=== PATIENT | male | born 1950 | race Caucasian/White ===

== ENCOUNTER 2019-02-24 12:24 | Emergency (ER) | payer OTHER, MEDICARE ==
[2019-02-24] MEDS ORDERED: NORMAL SALINE 1000 ML 1,000 ML IV ONE (12:39)
[2019-02-24] MEDS ORDERED: MORPHINE SULFATE 10 MG/ML INJ IV ONE (12:39)
[2019-02-24] MEDS ORDERED: ONDANSETRON HCL INJ/PF 4 MG/2 ML SDV IV ONE (12:39)
--- NOTE | 2019-02-24 12:42 | ER Document Report ---
ED Medical Screen (RME) - General Chief Complaint: Flank Pain Stated Complaint: FLANK PAIN Time Seen by Provider: 02/24/19 12:33 TRAVEL OUTSIDE OF THE U.S. IN LAST 30 DAYS: No - HPI Notes: 02/24/19 12:40 68-year-old male to the emergency department with complaints of acute onset of right flank pain and nausea that began this morning just prior to arrival. He states that he has a history of kidney stones and this feels similar. He denies any vomiting, fevers, chills, chest pain, shortness of breath. He states that he has not seen blood in his urine yet this morning. He states that he has not urinated since the pain started though. He states that several years ago he was hospitalized for almost a year because it so many kidney stones in both of his kidneys. He he is followed at the [facility]. I performed a medical screening exam. Patient has right-sided CVA tenderness and tenderness over palpation of the right lateral abdomen. He appears to be in pain and cannot get comfortable. I have ordered initial labs and a CT scan as well as medicines. We will have him further evaluated and managed by [facility] provider. - Related Data Allergies/Adverse Reactions: codeine Allergy (Verified 02/24/19 12:25) Past Medical History - Social History Frequency of alcohol use: Rare Drug Abuse: None Renal/ Medical History: Denies: Hx Peritoneal Dialysis Physical Exam - Vital signs Vitals: Temp Pulse Resp BP Pulse Ox 98.1 F 78 20 193/110 H 95 02/24/19 12:30 02/24/19 12:30 02/24/19 12:30 02/24/19 12:30 02/24/19 12:30 Course - Vital Signs Vital signs: Temp Pulse Resp BP Pulse Ox 98.1 F 78 20 193/110 H 95 02/24/19 12:30 02/24/19 12:30 02/24/19 12:30 02/24/19 12:30 02/24/19 12:30
[2019-02-24 13:06] LABS: ABSOLUTE BASOPHILS # (AUTO) 0.1 10^3/uL (0.0-0.2); ABSOLUTE EOSINOPHILS # (AUTO) 0.1 10^3/uL (0.0-0.6); ABSOLUTE LYMPHOCYTES (AUTO) 1.3 10^3/uL (0.5-4.7); ABSOLUTE MONOCYTES (AUTO) 0.7 10^3/uL (0.1-1.4); ABSOLUTE NEUT (AUTO) 5.8 10^3/uL (1.7-8.2); BASOPHILS % (AUTO) 0.6 % (0-2); EOSINOPHILS % (AUTO) 1.1 % (0-6); HEMATOCRIT 48.7 % (37.9-51.0); HEMOGLOBIN 16.5 g/dL (13.5-17.0); LYMPHOCYTES % (AUTO) 16.5 % (13-45); MEAN CORPUSCULAR HEMOGLOBIN 29.9 pg (27.0-33.4); MEAN CORPUSCULAR HGB CONC 33.9 g/dL (32.0-36.0); MEAN CORPUSCULAR VOLUME 88 fl (80-97); MONOCYTES % (AUTO) 8.6 % (3-13); PLATELET COUNT 160 10^3/uL (150-450); RED BLOOD COUNT 5.51 10^6/uL (4.35-5.55); SEGMENTED NEUTROPHILS % (AUTO) 73.2 % (42-78); TOTAL CELLS COUNTED % (AUTO) 100 %
--- NOTE | 2019-02-24 13:28 | RADIOLOGY REPORT (SQ) ---
EXAM DESCRIPTION: CT ABD/PELVIS NO ORAL OR IV COMPLETED DATE/TIME: 02/24/2019 1:11 pm REASON FOR STUDY: flank pain, eval kidney stone COMPARISON: None. TECHNIQUE: CT scan of the abdomen and pelvis performed without intravenous or oral contrast. Images reviewed with lung, soft tissue, and bone windows. Reconstructed coronal and sagittal MPR images revi ewed. All images stored on PACS. All CT scanners at this facility use dose modulation, iterative reconstruction, and/or weight based d osing when appropriate to reduce radiation dose to as low as reasonably achievable (ALARA). [facility]: Dose Right [facility]: CareDose [facility]: Dose Right [facility]: Teradose 4D [facility]: Smart [employer] RADIATION DOSE: CT Rad equipment meets quality standard of care and radiation dose reduction techniq ues were employed. CTDIvol: 10.8 mGy. DLP: 644 mGy-cm.mGy. LIMITATIONS: None. FINDINGS: LOWER CHEST: Coronary atherosclerosis. Small pericardial effusion. Mitral and aortic jonas ulus calcifications. NON-CONTRASTED LIVER, SPLEEN, ADRENALS: Evaluation limited by lack of IV contrast. No identified sign ificant masses. PANCREAS: No masses. No peripancreatic inflammatory changes. GALLBLADDER: No identified stones by CT criteria. No inflammatory changes to suggest cholecystitis. RIGHT KIDNEY AND URETER: No suspicious masses. Assessment limited by lack of IV contrast. There are multiple low-density renal cysts, largest peripelvic cysts measures 6.5 cm. There are multiple teresita l stones. There is a 6 mm and a 4 mm stone within the proximal ureter with mild upstream dilation of the renal collecting system and perinephric stranding. LEFT KIDNEY AND URETER: There is a 2.9 cm intermediate density exophytic lesion off the left lower po le. Additional renal cysts are noted, largest measuring 7.9 cm. Scattered punctate nonobstructing stones. No hydronephrosis or hydroureter. AORTA AND RETROPERITONEUM: Aortoiliac atherosclerosis without aneurysm. No retroperitoneal adenopath y or masses. BOWEL AND PERITONEAL CAVITY: No focal bowel wall thickening. No evidence of intestinal obstruction. APPENDIX: Normal. PELVIS, BLADDER, AND ABDOMINAL WALL:Prostatomegaly extending into the bladder base and measuring 5.9 cm transversely. BONES: No acute bony abnormality. No discrete lytic or blastic osseous lesions. OTHER: No other significant finding. IMPRESSION: 1. 6 and 5 mm stones within the proximal right ureter with mild upstream hydronephrosis and perinephric stranding. Multiple additional bilateral nonobstructing stones. 2. Indeterminate 2.9 cm exophytic lesion off the left lower pole. Multiphase contrasted CT or MRI s hould be considered for further characterization. Multiple additional bilateral renal cyst. 3. Prostatomegaly measuring up to 6.9 cm transversely. COMMENT: Quality ID # [id number]: Final reports with documentation of one or more dose reduction techniques (e.g., Automated exposure control, adjustment of the mA and/or kV according to patient size, use of iterative reconstruction technique) TECHNICAL DOCUMENTATION: JOB ID: [id number] [employer]- All Rights Reserved Reading location - IP/workstation name: [email or web address]
[2019-02-24 13:36] LABS: ALBUMIN 4.6 g/dL (3.5-5.0); ALKALINE PHOSPHATASE 72 U/L (38-126); ANION GAP 12 (5-19); ASPARTATE AMINO TRANSFERASE 11 U/L (17-59); BILIRUBIN,DIRECT 0.3 mg/dL (0.0-0.4); BILIRUBIN,TOTAL 0.5 mg/dL (0.2-1.3); BLOOD UREA NITROGEN 21 mg/dL (7-20); CALCIUM 9.9 mg/dL (8.4-10.2); CARBON DIOXIDE 22 mmol/L (22-30); CHLORIDE 107 mmol/L (98-107); GLUCOSE 118 mg/dL (75-110); POTASSIUM 4.2 mmol/L (3.6-5.0); TOTAL PROTEIN 7.5 g/dL (6.3-8.2)
[2019-02-24 14:03] LABS: APPEARANCE,URINE CLEAR; BILIRUBIN,URINE NEGATIVE (NEGATIVE); COLOR,URINE STRAW; GLUCOSE, URINE NEGATIVE (NEGATIVE); KETONES,URINE NEGATIVE (NEGATIVE); LEUKOCYTE ESTERASE,URINE NEGATIVE (NEGATIVE); NITRITE,URINE NEGATIVE (NEGATIVE); PROTEIN,URINE 100 mg/dL (NEGATIVE); URINE SPECIFIC GRAVITY 1.012; UROBILINOGEN,URINE NEGATIVE mg/dL (<2.0)
[2019-02-24] MEDS ORDERED: HYDROMORPHONE HCL INJ/PF 2 MG/ML AMPULE IV ONE (14:18)
--- NOTE | 2019-02-24 14:27 | ER Document Report ---
ED GI/ - General Chief Complaint: Flank Pain Stated Complaint: FLANK PAIN Time Seen by Provider: 02/24/19 12:33 Primary Care Provider: RAO PARKER DO [Primary Care Provider] - Follow up tomorrow Mode of Arrival: Ambulatory Information source: Patient, Relative Notes: Patient presents with right flank pain that started around 1030 today. Patient states pain would radiate around to right side of abdomen. Patient has had nausea but denies any vomiting. No fever. Patient reports a history of kidney stones and suspects the same today. TRAVEL OUTSIDE OF THE U.S. IN LAST 30 DAYS: No - HPI Patient complains to provider of: Abdominal pain, Flank pain Onset: This morning Timing/Duration: Sudden Quality of pain: Sharp Pain Level: 5 Location: RLQ, Right flank Associated symptoms: Nausea. denies: Dysuria, Fever, Urinary hesitancy, Urinary frequency, Urinary retention, Urinary urgency, Vomiting Exacerbated by: Denies Relieved by: Denies Similar symptoms previously: Yes Recently seen / treated by doctor: No - Related Data Allergies/Adverse Reactions: codeine Allergy (Verified 02/24/19 12:25) Past Medical History - General Information source: Patient - Social History Smoking Status: Never Smoker Frequency of alcohol use: Rare Drug Abuse: None Lives with: Spouse/Significant other Family History: Reviewed & Not Pertinent Patient has suicidal ideation: No Patient has homicidal ideation: No - Past Medical History Cardiac Medical History: Reports: Hx Coronary Artery Disease, Hx Hypercholesterolemia, Hx Hypertension Renal/ Medical History: Reports: Hx Benign Prostatic Hyperplasia, Hx Kidney Stones, Other - Renal cysts. Denies: Hx Peritoneal Dialysis Past Surgical History: Reports: Hx Coronary Stent, Hx Orthopedic Surgery, Hx Tonsillectomy Review of Systems - Review of Systems Constitutional: No symptoms reported. denies: Fever EENT: No symptoms reported Cardiovascular: No symptoms reported. denies: Chest pain, Dizziness Respiratory: No symptoms reported. denies: Cough, Short of breath Gastrointestinal: Abdominal pain, Nausea. denies: Diarrhea, Vomiting Genitourinary: Flank pain. denies: Dysuria, Hematuria Male Genitourinary: No symptoms reported Musculoskeletal: Back pain Skin: No symptoms reported Hematologic/Lymphatic: No symptoms reported Neurological/Psychological: No symptoms reported Physical Exam - Vital signs Vitals: Temp Pulse Resp BP Pulse Ox 98.1 F 78 20 193/110 H 95 02/24/19 12:30 02/24/19 12:30 02/24/19 12:30 02/24/19 12:30 02/24/19 12:30 - General General appearance: Appears well, Alert In distress: None - HEENT Head: Normocephalic, Atraumatic Eyes: Normal Conjunctiva: Normal Nasal: Normal Mouth/Lips: Normal Mucous membranes: Normal Neck: Normal, Supple. No: Lymphadenopathy - Respiratory Respiratory status: No respiratory distress Chest status: Nontender Breath sounds: Normal. No: Rales, Rhonchi, Stridor, Wheezing Chest palpation: Normal - Cardiovascular Rhythm: Regular Heart sounds: S1 appreciated, S2 appreciated Murmur: No - Abdominal Inspection: Obese Distension: No distension Bowel sounds: Normal Tenderness: Tender - RLQ Organomegaly: No organomegaly - Back Back: CVA tenderness - right - Extremities General upper extremity: Normal inspection, Normal ROM General lower extremity: Normal inspection, Normal ROM - Neurological Neuro grossly intact: Yes Cognition: Normal Nithya Coma Scale Eye Opening: Spontaneous [place] Coma Scale Verbal: Oriented Nithya Coma Scale Motor: Obeys Commands [place] Coma Scale Total: 15 - Psychological Associated symptoms: Normal affect, Normal mood - Skin Skin Temperature: Warm Skin Moisture: Dry Skin Color: Normal Course - Re-evaluation Re-evalutation: 02/24/19 14:[address] Cespedes regarding patient CT report findings of incidental exophytic lesion on the left kidney. Recommends outpatient follow-up with primary doctor to evaluate this finding. Agrees with outpatient follow-up with urology for definitive management of his ureteral stones at this time. 02/24/19 14:30 Spoke with patient's primary doctor Dr. Parker at the [facility] in [place] per patient and family request. Dr. Parker updated regarding incidental finding of 2.9 cm exophytic lesion on the left lower pole. Recommends giving copies of CT report findings to patient as well as his labs. Agrees with plan with discharge from the ER once patient's pain has been controlled and advising patient to go directly to the [facility] in [place] for further management of his ureteral stones. Patient's has already stated that she would prefer to drive him POV and patient's primary doctor is agreeable with this plan of care. 02/24/19 15:16 Patient presents without any fever, no leukocytosis, no abnormal renal function tests at this time. Patient with history of kidney stones in the past which have required lithotripsy. Patient suspects the same today. Patient nontoxic in appearance. Patient's pain is controlled at this time. prefers to drive patient POV to the [facility]. Patient and his are agreeable with discharge plan of care that was discussed with patient's primary doctor. - Vital Signs Vital signs: Temp Pulse Resp BP Pulse Ox 98.1 F 99 18 170/70 H 99 02/24/19 15:24 02/24/19 15:24 02/24/19 15:24 02/24/19 15:24 02/24/19 15:24 - Laboratory Result Diagrams: 02/24/19 12:56 02/24/19 12:56 Laboratory results interpreted by me: 02/24/19 02/24/19 12:56 13:45 BUN 21 H Glucose 118 H AST 11 L Urine Protein 100 H Urine Blood LARGE H 02/24/19 15:17 Labs- Entire Visit 02/24/19 02/24/19 02/24/19 12:56 12:56 13:45 WBC 8.0 RBC 5.51 Hgb 16.5 Hct 48.7 MCV 88 MCH 29.9 MCHC 33.9 RDW 14.0 Plt Count 160 Lymph % (Auto) 16.5 Guthrie % (Auto) 8.6 Eos % (Auto) 1.1 Baso % (Auto) 0.6 Absolute Neuts (auto) 5.8 Absolute Lymphs (auto) 1.3 Absolute Monos (auto) 0.7 Absolute Eos (auto) 0.1 Absolute Basos (auto) 0.1 Seg Neutrophils % 73.2 Sodium 141.0 Potassium 4.2 Chloride 107 Carbon Dioxide 22 Anion Gap 12 BUN 21 H Creatinine 1.10 Est GFR ( Amer) > 60 Est GFR (MDRD) Non-Af > 60 Glucose 118 H Calcium 9.9 Total Bilirubin 0.5 Direct Bilirubin 0.3 Neonat Total Bilirubin Not Reportable Neonat Direct Bilirubin Not Reportable Neonat Indirect Bili Not Reportable AST 11 L ALT 27 Alkaline Phosphatase 72 Total Protein 7.5 Albumin 4.6 Urine Color STRAW Urine Appearance CLEAR Urine pH 5.0 Ur Specific [place] 1.012 Urine Protein 100 H Urine Glucose (UA) NEGATIVE Urine Ketones NEGATIVE Urine Blood LARGE H Urine Nitrite NEGATIVE Urine Bilirubin NEGATIVE Urine Urobilinogen NEGATIVE Ur Leukocyte Esterase NEGATIVE Urine WBC (Auto) 2 Urine RBC (Auto) 29 Squamous Epi Cells Auto <1 Urine Mucus (Auto) RARE Urine Ascorbic Acid NEGATIVE - Diagnostic Test Radiology reviewed: Reports reviewed Discharge - Discharge Clinical Impression: Ureteral stone, Renal calculus, Renal cyst, Renal lesion Condition: Stable Disposition: HOME, SELF-CARE Instructions: Growth or Mass, Pending Workup ([facility]), Kidney Stone ([facility]), Pain Medication Injection ([facility]) Additional Instructions: Return immediately for any new or worsening symptoms Followup with the [facility] directly after discharge. Give the hospital copies of your records from today's visit. Referrals: RAO PARKER, DO [Primary Care Provider] - Follow up tomorrow
[2019-02-24 15:26] VITALS: BP 170/70
== END 2019-02-24 15:26 | disposition home or self-care (01) ==
LOC: ER 12:24
DX: N20.1 Calculus of ureter (principal); N20.0 Calculus of kidney; N28.1 Cyst of kidney, acquired; N28.9 Disorder of kidney and ureter, unspecified; R10.9 Unspecified abdominal pain; R11.0 Nausea
CPT/HCPCS: 99284; 96361; 96374; 96375; 36415; 85025; 80053; 81001; 74176; J2270; J1170; J2405; J7030

== ENCOUNTER → 2019-04-09 | Outpatient (CLI) | payer OTHER ==
--- NOTE | 2019-04-09 12:16 | RADIOLOGY REPORT (SQ) ---
EXAM DESCRIPTION: CT ABD/PELVIS COMBO COMPLETED DATE/TIME: 04/09/2019 9:46 am REASON FOR STUDY: KIDNEY STONE COMPARISON: None. TECHNIQUE: CT scan of the abdomen and pelvis performed with and without intravenous contrast, and wi thout oral contrast. Contrasted imaging performed helical scanning technique and dynamic intravenous contrast injection. Images reviewed with lung, soft tissue, and bone windows. Reconstructed coronal a nd sagittal MPR images reviewed. Delayed images for evaluation of the urinary system also acquired. A ll images stored on PACS. All CT scanners at this facility use dose modulation, iterative reconstruction, and/or weight based d osing when appropriate to reduce radiation dose to as low as reasonably achievable (ALARA). [facility]: Dose Right [facility]: CareDose [facility]: Dose Right [facility]: Teradose 4D [facility]: [employer] CONTRAST TYPE AND DOSE: contrast/concentration: Isovue 350.00 mg/ml; Total Contrast Delivered: 100.0 ml; Total Saline Delivered: 72.0 ml RENAL FUNCTION: Creatinine 1.1 RADIATION DOSE: CT Rad equipment meets quality standard of care and radiation dose reduction techniq ues were employed. CTDIvol: 12.8 - 14.2 mGy. DLP: 2377 mGy-cm. . LIMITATIONS: None. FINDINGS: NON-CONTRASTED IMAGIN mm stone within the proximal right ureter without significant hy dronephrosis. POST-CONTRASTED IMAGING: LOWER CHEST: No significant findings. No nodules or infiltrates. LIVER: Normal size. No masses. No dilated ducts. SPLEEN: Normal size. No focal lesions. PANCREAS: No masses. No significant calcifications. No adjacent inflammation or peripancreatic fluid collections. Pancreatic duct not dilated. GALLBLADDER: No identified stones by CT criteria. No inflammatory changes to suggest cholecystitis. ADRENAL GLANDS: No significant masses or asymmetry. RIGHT KIDNEY AND URETER: Multiple renal cysts. Additional subcentimeter hypodense lesions, likely cy sts but indeterminate secondary to size. No discrete solid mass. 8 mm stone within the proximal ri ght ureter, which was previously within the interpolar region. Previously-seen 5 and 6 mm proximal u reteral stones are no longer visualized. Additional stone within the mid ureter is no longer visuali zed. Punctate lower pole stone. Additional previously seen nonobstructing stones are no longer visu alized. No significant hydronephrosis. LEFT KIDNEY AND URETER: Multiple cysts. Additional subcentimeter hypodense lesions, indeterminate se condary to lesions size but also likely cysts. There is a exophytic lower pole lesion measuring 3 cm with intermediate attenuation and no significant contrast enhancement, likely proteinaceous cyst. Punctate nonobstructing calcification, stable. No hydronephrosis or hydroureter. AORTA AND VESSELS: Aortoiliac atherosclerosis without aneurysm. No retroperitoneal mass or adenopath y. RETROPERITONEUM: No retroperitoneal adenopathy, hemorrhage or masses. BOWEL AND PERITONEAL CAVITY: No masses or inflammatory changes. No free fluid or peritoneal masses. APPENDIX: Normal. PELVIS: Decompressed urinary bladder with mild circumferential wall thickening. Prostatomegaly exten ding into the base of the urinary bladder, unchanged. No free fluid or lymphadenopathy. ABDOMINAL WALL: No masses. No hernias. BONES: No significant or acute findings. OTHER: No acute bony abnormality. No suspicious osseous lesions. IMPRESSION: 1. 8 mm stone within the proximal right ureter without significant hydronephrosis. Pre viously-seen right-sided 5 and 6 mm proximal ureteral stones are no longer visualized. Punctate ad ditional nonobstructing stones bilaterally. 2. Previously described exophytic left lower pole 3 cm cyst demonstrates no significant enhancement most compatible with proteinaceous cyst. Stable additional bilateral cysts and hypodense lesions, so me which are too small to definitively characterize but also likely represent cysts. 3. Stable prostatomegaly. TECHNICAL DOCUMENTATION: JOB ID: [id number] Quality ID # [id number]: Final reports with documentation of one or more dose reduction techniques (e.g., Au tomated exposure control, adjustment of the mA and/or kV according to patient size, use of iterative reconstruction technique) 2010 [email or web address]- All Rights Reserved Reading location - IP/workstation name: [email or web address]
== END ==
LOC: RAD 08:46
PROVIDERS: ATTEND Urology
DX: N20.1 Calculus of ureter (principal); Q61.02 Congenital multiple renal cysts
CPT/HCPCS: 74178; 82565

== ENCOUNTER 2019-09-08 21:37 | Emergency (ER) | payer OTHER, MEDICARE ==
--- NOTE | 2019-09-08 22:52 | RADIOLOGY REPORT (SQ) ---
Right hip and pelvic radiographs: 09/08/2019 9:51 PM CDT TECHNIQUE: AP pelvis; AP and lateral views of the right hip were obtained. COMPARISON: None available HISTORY: 68-year-old patient with recent fall, right hip pain. FINDINGS: The visualized sacroiliac joints are unremarkable. There are no findings to suggest an acute fracture or subluxation within the right hip. There are no findings to suggest an acute fracture of the pelvis. Multilevel degenerative changes are seen within the lumbar spine. IMPRESSION: There are no findings to suggest an acute fracture or subluxation of the right hip. There are no findings to suggest an acute fracture within the pelvis.
--- NOTE | 2019-09-08 22:57 | RADIOLOGY REPORT (SQ) ---
CLINICAL INDICATION: eval for knee trauma. Knee pain post trauma. TECHNIQUE: 4 view(s) were obtained of the right knee. COMPARISON: None. FINDINGS: No acute displaced fracture is identified of the knee. Alignment appears anatomic. Osteoarthritis. No significant joint effusion. Surrounding soft tissues are unremarkable. IMPRESSION: No evidence of acute displaced fracture of the knee.
[2019-09-08] MEDS ORDERED: KETOROLAC TROMETHAMINE 60 MG/2 ML SDV IM ONE (23:18)
[2019-09-08] MEDS ORDERED: HYDROCODONE/ACETAMINOPHEN 5-325 MG (6 TAB/ER DISP) PO PRN (23:54)
--- NOTE | 2019-09-08 23:54 | ER Document Report ---
ED General - General Chief Complaint: Knee Pain Stated Complaint: RIGHT KNEE PAIN Time Seen by Provider: 09/08/19 21:57 Primary Care Provider: [facility] [Primary Care Provider] - Follow up as needed CHU LEBLANC DO [ACTIVE STAFF] - Follow up as needed Mode of Arrival: Medic Information source: Patient TRAVEL OUTSIDE OF THE U.S. IN LAST 30 DAYS: No - HPI Onset: Just prior to arrival Onset/Duration: Sudden Quality of pain: Sharp, Throbbing Severity: Severe Pain Level: 5 Associated symptoms: None Exacerbated by: Standing, Movement, Walking Relieved by: Remaining still Similar symptoms previously: No Recently seen / treated by doctor: No Notes: 68 year old male with a history of CAD, HTN, HLD, BPH here for right knee pain which started when the patient turned her right knee out and he heard a pop. The patient said he had immediate pain and could not ambulate after. The patient says he was seen at the [facility] last week for some pain in his right low back and right hip and he was told he likely had sciatica then. The patient was given muscle relaxers then. The patient had no imaging of his back or him then. The patient denies swelling or bruising of his right knee, leg, or hip. The patient never had direct trauma to his right knee, leg, or hip. - Related Data Allergies/Adverse Reactions: codeine Allergy (Verified 02/24/19 12:25) Home Medications: docusate sodium. tramadol. prednisone. potassium citrate. HCTZ. sertraline. flexeril. melatonin. atorvastatin. aspirin. stool softener Past Medical History - General Information source: Patient - Social History Smoking Status: Never Smoker Chew tobacco use (# tins/day): No Frequency of alcohol use: None Drug Abuse: None Lives with: Spouse/Significant other Family History: Reviewed & Not Pertinent Patient has suicidal ideation: No Patient has homicidal ideation: No - Past Medical History Cardiac Medical History: Reports: Hx Coronary Artery Disease, Hx Hypercholesterolemia, Hx Hypertension Renal/ Medical History: Reports: Hx Benign Prostatic Hyperplasia, Hx Kidney Stones. Denies: Hx Peritoneal Dialysis Past Surgical History: Reports: Hx Coronary Stent, Hx Orthopedic Surgery, Hx Tonsillectomy Review of Systems - Review of Systems Constitutional: No symptoms reported EENT: No symptoms reported Cardiovascular: No symptoms reported Respiratory: No symptoms reported Gastrointestinal: No symptoms reported Genitourinary: No symptoms reported Male Genitourinary: No symptoms reported Musculoskeletal: Other - right knee pain, right hip pain Skin: No symptoms reported Hematologic/Lymphatic: No symptoms reported Neurological/Psychological: No symptoms reported -: Yes All other systems reviewed and negative Physical Exam - Notes Notes: GENERAL: Well-appearing, well-nourished and in no acute distress. HEAD: Atraumatic, normocephalic. EYES: Pupils equal round and reactive to light, extraocular movements intact, sclera anicteric, conjunctiva are normal. ENT: Nares patent, oropharynx clear without exudates. Moist mucous membranes. NECK: Normal range of motion, supple without lymphadenopathy or JVD. LUNGS: Breath sounds clear to auscultation bilaterally and equal. No wheezes rales or rhonchi. HEART: Regular rate and rhythm without murmurs, rubs or gallops. ABDOMEN: Soft, nontender, normoactive bowel sounds. No guarding, no rebound. No masses appreciated. EXTREMITIES: Right knee stable on exam but patient is very tender in right la teral knee on palpation and with the anterior drawer test. No swelling or bony step offs. Normal range of motion except in right knee which is decreased due to pain. No pitting or edema. No clubbing or cyanosis. No right knee effusion on exam. NEUROLOGICAL: Cranial nerves II through XII grossly intact. Normal speech. PSYCH: Normal mood, normal affect. SKIN: Warm, Dry, normal turgor, no rashes or lesions noted. Course - Re-evaluation Re-evalutation: 09/09/19 00:08 The patient twisted his right knee and heard a pop and now he has significant pain and cannot ambulate. Xrays of his right Knee and Hip show no acute process and patient has no swelling or effusion on exam. Will apply a knee immobilizer and give crutches and have the patient follow up with Orthopedics. Patient given a Okatie take home pack and told to use Tylenol and Motrin for pain. - Diagnostic Test Radiology reviewed: Image reviewed, Reports reviewed Discharge - Discharge Clinical Impression: Knee pain, right Qualifiers: Chronicity: acute Qualified Code(s): M25.561 - Pain in right knee Condition: Stable Disposition: HOME, SELF-CARE Instructions: Use of Crutches ([facility]), Suspected Internal Knee Injury ([facility]), Knee Immobilizing Splint ([facility]), Sprained Knee ([facility]) Additional Instructions: Follow up with an Orthopedic Surgeon such as Dr. Chu Leblanc if your knee pain persists. Use Tylenol and Motrin for pain and use Okatie for pain not well controlled. You had Xrays of your Right Hip, Pelvis, and Right Knee which showed no acute process. Prescriptions: Hydrocodone/Acetaminophen [Okatie 5-325 mg Tablet] 1 tab PO Q8H PRN #10 tablet PRN Reason: Referrals: [facility] [Primary Care Provider] - Follow up as needed CHU LEBLANC DO [ACTIVE STAFF] - Follow up as needed
[2019-09-09 03:21] VITALS: BP 148/87
== END 2019-09-09 01:26 | disposition home or self-care (01) ==
LOC: ER 21:37
DX: M25.561 Pain in right knee (principal); I25.10 Atherosclerotic heart disease of native coronary artery without angina pectoris; E78.00 Pure hypercholesterolemia, unspecified; I10 Essential (primary) hypertension; Z87.442 Personal history of urinary calculi; Z88.6 Allergy status to analgesic agent
CPT/HCPCS: 99284; 96372; 73502; 73564; J1885